=== PATIENT | male | born 1950 | race Caucasian/White ===

== ENCOUNTER → 2018-02-14 09:21 | Outpatient (CLI) | payer SELFPAY ==
[2018-02-14 11:14] LABS: PSA,Total- Diagnostic 5.87 ng/mL (0.0-4.0)
--- OUTSIDE RECORDS SUMMARY | 2018-04-09 13:25 | XMS RPT_ITS ---
:1950 Author Organization OHIP Care Team Providers Name Role Phone Sailaja Lion Attending Unavailable Sailaja Lion Referring Unavailable Jl Watson Primary Care Unavailable PROBLEMS PROBLEMS No Problem Records FoundPROCEDURES PROCEDURES No Procedure Records FoundRESULTS RESULTS PSA,TOTAL- DIAGNOSTIC Collected: 02/14/2018 Status: F Source: [place] 9:30 AM [facility] [place] REPOSITORY TYPE CODE TESTS RESULT OUT OF REFERENCE UNITS RANGE LAB L501.9940 0.0-4.0 ng/mL PSA, High DIAGNOSTIC 5.87 Result Comment: This test was performed using the TPSA assay method for the Scholrly chemistry system. Values obtained with different assay methods cannot be used interchangably. When changing PSA assays in the course of monitoring a patient, additional sequential testing should be carried out to confirm baseline values. Performed By: #### L501.9940 #### [facility] [address] [place], [address] ALLERGIES ALLERGIES No Allergies Records FoundENCOUNTERS ENCOUNTERS ADMIT/DISCHARGE ACCOUNT ADMITTING ENCOUNTER LOCATION SOURCE NUMBER CLASS 02/14/2018 [id number] Ambulatory [address] ing:LAB Repository PAYERS PAYERS ENCOUNTER GUARANTOR PAYER SUBSCRIBER SOURCE 02/14/2018 SAUD Bolivar Primary NOT GIVENUNK [place] [id number] [facility] Insurance:[facility]LF [facility] Number: Effective [place] [address]Lnm: Date:2018-02-14 ()
== END ==
PROVIDERS: Family Provider Family Medicine; PCP Family Medicine; Referring Provider Nurse Practitioner Adult Health; Visit Provider Nurse Practitioner Adult Health
DX: R97.20 Elevated prostate specific antigen [PSA] (principal)
CPT/HCPCS: 36415; 84153

== ENCOUNTER → 2019-03-02 09:02 | Outpatient (CLI) | payer SELFPAY ==
[2019-03-02 11:27] LABS: PSA,Total - Annual Screen 6.88 ng/mL (0.00-4.00)
== END ==
PROVIDERS: Family Provider Family Medicine; PCP Family Medicine; Referring Provider Nurse Practitioner Adult Health; Visit Provider Nurse Practitioner Adult Health
DX: N40.1 Benign prostatic hyperplasia with lower urinary tract symptoms (principal)
CPT/HCPCS: 36415; 84153; G0103

== ENCOUNTER → 2019-08-28 09:08 | Outpatient (CLI) | payer OTHER, SELFPAY ==
[2019-08-28 10:33] LABS: PSA,Total- Diagnostic 9.43 ng/mL (0.0-4.0)
== END ==
PROVIDERS: PCP Family Medicine; Referring Provider Nurse Practitioner Adult Health; Visit Provider Nurse Practitioner Adult Health
DX: R97.20 Elevated prostate specific antigen [PSA] (principal)
CPT/HCPCS: 36415; 84153

== ENCOUNTER → 2019-10-17 | Outpatient (CLI) | payer OTHER, SELFPAY ==
--- NOTE | 2019-10-17 | IMM_PTH ---
PATIENT: SAUD RIVAS LOC: [place] U#:[id number] AGE/SX: 69/M ROOM: RE10/17/[address]: Dr. Jerel Lopez MD : 1950 BED: DIS: 10/17/2019 SPEC #: [id number] RECD: 10/18/19 12:50 STATUS: LIDIA REQ #: [id number] JOSUE: 10/17/19 00:[address]: Jerel Lopez DEPT: IMMUNOHISTOCHEMISTRY RECD BY: Praveena Duran ENTERED: 10/18/19 12:51 SP TYPE: IMMUNO OTHR DR: Dr. Jl Watson DO Tissues: A - PROSTATE RIGHT D - PROSTATE LEFT Procedures: 34BE12 (add) P40 (add) 34BE12 (initial) PHYSICIAN & INSTITUTION [place] [id number] SPECIMEN INFORMATION: Tissue Source: Clinical Info: Elevated PSA Specimen Number: [id number] A & D CPT code: 34241, 50171 x3 METHODOLOGY: Deparaffinized sections of prefer/formalin-fixed tissue or PAP/DQ stained slides are incubated with monoclonal/polyclonal antibodies/oligonucleotide probes. Localization is made via biotin free immunoperoxidase method. Appropriate controls are performed and reacted as expected. Results on target cell population are indicated in the following table: RESULTS: ANTIBODY / CLONE RESULT Block A P40 (BC28) negative, focal 34BE12 (34BE12) negative, focal Block D P40 (BC28) positive 34BE12 (34BE12) positive These tests were developed and their performance characteristics determined by [facility]. They may not have been cleared or approved by the U.S. Food and Drug Administration. The FDA has determined that such clearance or approval is not necessary. The above immunohistochemical/dualISH markers are ordered and reviewed by the Pathologist. INTERPRETATION: A. Right prostate, apex, core biopsy: Focal atypical small acinar proliferation. D. Left prostate, apex, core biopsy: Benign prostatic tissue. AM:jorge 10/19/19
--- NOTE | 2019-10-17 | PROSBIL_PTH ---
PATIENT: SAUD RIVAS [facility] U#:[id number] AGE/SX: 69/M ROOM: RE10/17/[address]: Dr. Jerel Lopez MD : 1950 BED: DIS: 10/17/2019 SPEC #: [id number] RECD: 10/17/19 11:47 STATUS: LIDIA REZamzam #: [id number] JOSUE: 10/17/19 00:[address]: Jerel Lopez DEPT: SURGICAL PATHOLOGY RECD BY: Yo Pollard ENTERED: 10/17/19 11:47 SP TYPE: PROST BX ARANZA DR: Dr. Jl Watson DO Tissues: A - PROSTATE RIGHT B - PROSTATE RIGHT C - PROSTATE RIGHT D - PROSTATE LEFT E - PROSTATE LEFT F - PROSTATE LEFT Procedures: PROSTATE BX HEADER OPERATION: Prostate biopsy PRE-OP DIAGNOSIS: Elevated PSA TISSUE SUBMITTED: A - Right apex, B - Right mid, C - Right base, D - Left apex, E - Left mid, F - Left base MICROSCOPIC DIAGNOSIS A. Right prostate, apex, core biopsy: Focal high-grade prostatic intraepithelial neoplasia (HGPIN). Focal atypical small acinar proliferation. See comment. B. Right prostate, mid, core biopsy: Focal glandular atrophy. C. Right prostate, base, core biopsy: Focal high-grade prostatic intraepithelial neoplasia (HGPIN). D. Left prostate, apex, core biopsy: Glandular atrophy. Focal high-grade prostatic intraepithelial neoplasia (HGPIN). E. Left prostate, mid, core biopsy: Focal glandular atrophy. Mild chronic inflammation. F. Left prostate, base, core biopsy: Glandular atrophy and minimal chronic inflammation. AM:jorge 10/18/19 COMMENT A & D. Immunohistochemistry ([id number]) supports the above diagnosis. MICROSCOPIC DESCRIPTION Slides are reviewed. GROSS DESCRIPTION A - Received is one container designated prostate, right apex. The specimen consists of two elongated fragments of light myers-white soft tissue measuring 0.7 and 1.3 cm in length and 0.1 cm in diameter. The specimen is totally submitted in one cassette. B - Received is one container designated prostate, right mid. The specimen consists of two elongated fragments of light myers-white soft tissue measuring 1.3 and 1.5 cm in length and 0.1 cm in diameter. The specimen is totally submitted in one cassette. C - Received is one container designated prostate, right base. The specimen consists of two elongated fragments of light myers-white soft tissue each measuring 1.3 cm in length and 0.1 cm in diameter. The specimen is totally submitted in one cassette. D - Received is one container designated prostate, left apex. The specimen consists of two elongated fragments of light myers-white soft tissue each measuring 1.2 cm in length and 0.1 cm in diameter. The specimen is totally submitted in one cassette. E - Received is one container designated prostate, left mid. The specimen consists of two elongated fragments of light myers-white soft tissue measuring 1.3 and 1.5 cm in length and 0.1 cm in diameter. The specimen is totally submitted in one cassette. F - Received is one container designated prostate, left base. The specimen consists of two elongated fragments of light myers-white soft tissue measuring 1 and 1.5 cm in length and 0.1 cm in diameter. The specimen is totally submitted in one cassette. / SJ:rg 10/17/19 TC:3 CPT: 54940 x6
== END | disposition home or self-care (01) ==
LOC: LABSPEC 10:50
PROVIDERS: PCP Family Medicine; Referring Provider Urology; Visit Provider Urology
DX: R97.20 Elevated prostate specific antigen [PSA] (principal)
CPT/HCPCS: 88305; 88341; 88342; G0416

== ENCOUNTER → 2020-04-25 09:25 | Outpatient (CLI) | payer OTHER, SELFPAY ==
[2020-04-25 11:08] LABS: PSA,Total- Diagnostic 5.88 ng/mL (0.0-4.0)
== END ==
PROVIDERS: PCP Family Medicine; Referring Provider Urology; Visit Provider Urology
DX: N40.1 Benign prostatic hyperplasia with lower urinary tract symptoms (principal)
CPT/HCPCS: 36415; 84153

== ENCOUNTER 2021-03-17 11:32 | Outpatient (CLI) | payer OTHER, SELFPAY ==
[2021-03-17 13:20] LABS: Vitamin D,25 Hydroxy 68.1 ng/mL
[2021-03-17 14:41] LABS: Estradiol 42.2 pg/mL; PSA,Total- Diagnostic 3.89 ng/mL (0.0-4.0)
[2021-03-20 11:08] LABS: Testosterone, Free 10.38 ng/dL (5.00-21.00)
[2021-03-21 13:56] LABS: Testosterone, % Free 2.57 % (1.50-4.20); Testosterone, Total 404 ng/dL (264-916)
== END 2021-03-17 23:59 | disposition short-term general hospital (02) ==
PROVIDERS: PCP Family Medicine; Visit Provider Legal Medicine
DX: E34.9 Endocrine disorder, unspecified (principal); E55.9 Vitamin D deficiency, unspecified; N40.0 Benign prostatic hyperplasia without lower urinary tract symptoms
CPT/HCPCS: 36415; 82306; 82670; 84153; 84402; 84403

== ENCOUNTER → 2021-11-24 | Outpatient (CLI) | payer OTHER, SELFPAY ==
[2021-11-24 09:57] LABS: Hematocrit 45.1 % (40-54); Hemoglobin 15.6 g/dL (13.0-16.5); Mean Corp Hgb Conc 34.6 g/dL (32-36); Mean Corpuscular Hgb 33.1 pg (27.0-32.0); Mean Corpuscular Volume 95.8 fL (80-94); Mean Platelet Vol. 9.9 fl (6.2-12.0); Platelet Count 149 K/mm3 (150-450); RBC Distribution Width CV 12.9 % (11.6-14.6); RBC Distribution Width SD 45.5 fl (35.1-43.9); Red Blood Count 4.71 M/mm3 (4.6-6.2); White Blood Count 4.7 K/mm3 (4.4-11.0)
[2021-11-24 10:30] LABS: Vitamin D,25 Hydroxy 47.8 ng/mL
[2021-11-24 10:40] LABS: ALB/GLOB Ratio 0.9 RATIO (0.9-2.4); AST(SGOT) 14 U/L (15-37); Alanine Aminotransfer ALT/SGPT 32 U/L (16-61); Albumin, Serum 3.4 g/dL (3.2-5.0); Alkaline Phosphatase 79 U/L (45-117); Anion Gap 4 (5-15); BUN 15 mg/dL (7-18); BUN/Creat Ratio 12.9 RATIO (10-20); Calcium,Total 9.1 mg/dL (8.5-10.1); Chloride 105 mmol/L (98-107); Cholesterol 235 mg/dL (200); Creatinine, Serum 1.16 mg/dL (0.70-1.30); EST Glomerular Filtration Rate 66 mL/min (>60); Est Glom Filt Rate - Afr Amer 80 mL/min (>60); Globulin 3.6 g/dL (2.2-4.2); Glucose 101 mg/dL (74-106); High Density Lipoprotein 53 mg/dL; LDH 186 U/L (87-241); PSA,Total - Annual Screen 2.57 ng/mL (0.00-4.00); Potassium 4.3 mmol/L (3.5-5.1); Sodium Level 138 mmol/L (136-145); Thyroid Stim Hormone (TSH) 1.43 uIU/mL (0.358-3.74); Triglycerides 140 mg/dL; Very Low Density Lipoprotein 28 mg/dL (5-40)
[2021-12-06 13:07] LABS: Testosterone, Free 41.23 ng/dL (5.00-21.00)
[2021-12-08 08:35] LABS: Testosterone, % Free 4.07 % (1.50-4.20); Testosterone, Total 1013 ng/dL (264-916)
== END | disposition home or self-care (01) ==
LOC: LAB 08:50
DX: N40.0 Benign prostatic hyperplasia without lower urinary tract symptoms (principal); E55.9 Vitamin D deficiency, unspecified; E34.9 Endocrine disorder, unspecified
CPT/HCPCS: 36415; 80053; 80061; 82306; 83615; 84153; 84402; 84403; 84443; 85027; G0103

== ENCOUNTER → 2022-04-01 | Outpatient (CLI) | payer OTHER, SELFPAY ==
[2022-04-01 11:00] LABS: Hematocrit 47.9 % (40-54); Hemoglobin 16.4 g/dL (13.0-16.5); Mean Corp Hgb Conc 34.2 g/dL (32-36); Mean Corpuscular Hgb 32.1 pg (27.0-32.0); Mean Corpuscular Volume 93.7 fL (80-94); Mean Platelet Vol. 9.7 fl (6.2-12.0); Platelet Count 157 K/mm3 (150-450); RBC Distribution Width CV 12.4 % (11.6-14.6); RBC Distribution Width SD 42.9 fl (35.1-43.9); Red Blood Count 5.11 M/mm3 (4.6-6.2); White Blood Count 4.5 K/mm3 (4.4-11.0)
[2022-04-01 11:26] LABS: ALB/GLOB Ratio 0.9 RATIO (0.9-2.4); AST(SGOT) 19 U/L (15-37); Alanine Aminotransfer ALT/SGPT 28 U/L (16-61); Albumin, Serum 3.6 g/dL (3.2-5.0); Alkaline Phosphatase 83 U/L (45-117); Anion Gap 7 (5-15); BUN 22 mg/dL (7-18); BUN/Creat Ratio 18.2 RATIO (10-20); Chloride 106 mmol/L (98-107); Cholesterol 218 mg/dL (200); Creatinine, Serum 1.21 mg/dL (0.70-1.30); EST Glomerular Filtration Rate 63 mL/min (>60); Est Glom Filt Rate - Afr Amer 76 mL/min (>60); Estradiol 51.7 pg/mL; Globulin 3.8 g/dL (2.2-4.2); Glucose 102 mg/dL (74-106); High Density Lipoprotein 62 mg/dL; Potassium 4.2 mmol/L (3.5-5.1); Protein, Total 7.4 g/dL (6.4-8.2); Sodium Level 139 mmol/L (136-145); Triglycerides 71 mg/dL; Very Low Density Lipoprotein 14 mg/dL (5-40)
[2022-04-06 16:08] LABS: Testosterone, % Free 1.88 % (1.50-4.20); Testosterone, Free 11.99 ng/dL (5.00-21.00)
[2022-04-06 18:33] LABS: PSA, Free 0.67 ng/mL; PSA, Free % 19.9 % (.); Testosterone, Total 638 ng/dL (264-916)
== END | disposition home or self-care (01) ==
PROVIDERS: PCP Legal Medicine; Referring Provider Legal Medicine; Visit Provider Legal Medicine
DX: E55.9 Vitamin D deficiency, unspecified (principal); N40.0 Benign prostatic hyperplasia without lower urinary tract symptoms; E29.1 Testicular hypofunction; R97.20 Elevated prostate specific antigen [PSA]
CPT/HCPCS: 36415; 80053; 80061; 82670; 84153; 84154; 84402; 84403; 85027

== ENCOUNTER → 2022-06-10 | Outpatient (CLI) | payer SELFPAY, OTHER ==
--- NOTE | 2022-06-10 15:53 | MRI_ITS ---
EXAM: MR HEAD WITHOUT AND WITH INTRAVENOUS CONTRAST CLINICAL INDICATION: NEW ONSET SEIZURE TECHNIQUE: Multiplanar and multisequence MR images of the brain were obtained without and with intravenous contrast. This report was created using LogR[employer] report generation technology. CONTRAST: clariscan 17ml iv COMPARISON: None. FINDINGS: BRAIN AND EXTRA-AXIAL SPACES: Increased FLAIR regions in the brain may signify early microvascular ischemic changes, a demyelinating process, vasculitis, or sequela related to migraines. No intra- or extra-axial hemorrhage. No intracranial mass or mass effect. Posterior fossa structures are unremarkable. Ventricles are appropriate for age. No hydrocephalus. Basal cisterns are patent. SELLA: Unremarkable. Normal sella turcica, pituitary gland, infundibular stalk, optic chiasm and hypothalamus. AUDITORY SYSTEM: Unremarkable. The internal auditory canals are patent. BONES/JOINTS: Unremarkable. No discrete lytic or blastic abnormalities. SINUSES: Pansinusitis. Left mastoid air cell disease. MASTOID AIR CELLS: Unremarkable as visualized. Clear. ORBITS: Unremarkable as visualized. Both globes, extraocular muscles, optic nerves and retrobulbar fat appear unremarkable. VASCULATURE: Unremarkable as visualized. Normal flow voids in the major intracranial circulation. MRI/Brain W/WO Contrast IMPRESSION: 1. Pansinusitis. Left mastoid air cell disease. 2. Microvascular ischemic changes. Electronically Signed: Destin Gutierrez MD at 18:04 EDT ,
[2022-06-10 16:35] LABS: CREATININE FINGERSTICK 1.1 mg/dL (0.70-1.30); EGFR FINGERSTICK > 60.0000 mL/min (>60)
== END | disposition home or self-care (01) ==
PROVIDERS: PCP Legal Medicine; Referring Provider Legal Medicine; Visit Provider Legal Medicine
DX: R56.9 Unspecified convulsions (principal)
CPT/HCPCS: 70553; A9575

== ENCOUNTER → 2022-07-07 | Outpatient (CLI) | payer OTHER, SELFPAY ==
--- NOTE | 2022-07-07 10:08 | TELEMED_ITS ---
[facility] Tele[facility] has confirmed receipt of a request for visit. This document confirms receipt of the order initiating the consult. To find the results of the consultation, please view the patient's reports for the scanned Telemed Consult.
[2022-07-07 11:40] LABS: Hematocrit 49.1 % (40-54); Hemoglobin 16.5 g/dL (13.0-16.5); Mean Corp Hgb Conc 33.6 g/dL (32-36); Mean Corpuscular Hgb 32.9 pg (27.0-32.0); Mean Platelet Vol. 9.8 fl (6.2-12.0); Platelet Count 149 K/mm3 (150-450); RBC Distribution Width CV 12.5 % (11.6-14.6); RBC Distribution Width SD 44.9 fl (35.1-43.9); Red Blood Count 5.01 M/mm3 (4.6-6.2); White Blood Count 4.4 K/mm3 (4.4-11.0)
[2022-07-07 12:06] LABS: Erythrocyte Sedimentation Rate 6 mm/hr (0-20)
[2022-07-07 12:26] LABS: Vitamin B12 591 pg/mL (211-911); Vitamin D,25 Hydroxy 46.1 ng/mL
[2022-07-07 15:10] LABS: ALB/GLOB Ratio 1.1 RATIO (0.9-2.4); AST(SGOT) 20 U/L (15-37); Alanine Aminotransfer ALT/SGPT 30 U/L (16-61); Albumin, Serum 3.7 g/dL (3.2-5.0); Alkaline Phosphatase 93 U/L (45-117); Anion Gap 4 (5-15); BUN 21 mg/dL (7-18); BUN/Creat Ratio 18.4 RATIO (10-20); CRP < 2.90 mg/L (0.0-3.0); Calcium,Total 8.9 mg/dL (8.5-10.1); Chloride 107 mmol/L (98-107); Cholesterol 222 mg/dL (200); Creatinine, Serum 1.14 mg/dL (0.70-1.30); EST Glomerular Filtration Rate 67 mL/min (>60); Est Glom Filt Rate - Afr Amer 81 mL/min (>60); Estradiol 42.3 pg/mL; Globulin 3.5 g/dL (2.2-4.2); Glucose 103 mg/dL (74-106); High Density Lipoprotein 59 mg/dL; Potassium 4.4 mmol/L (3.5-5.1); Protein, Total 7.2 g/dL (6.4-8.2); Sodium Level 138 mmol/L (136-145); Triglycerides 78 mg/dL; Very Low Density Lipoprotein 16 mg/dL (5-40)
[2022-07-14 11:09] LABS: Testosterone, % Free 1.21 % (1.50-4.20); Testosterone, Free 9.66 ng/dL (5.00-21.00); Testosterone, Total 798 ng/dL (264-916)
== END | disposition home or self-care (01) ==
PROVIDERS: PCP Legal Medicine; Referring Provider Legal Medicine; Visit Provider Legal Medicine
DX: G40.909 Epilepsy, unspecified, not intractable, without status epilepticus (principal); E29.1 Testicular hypofunction
CPT/HCPCS: 36415; 80053; 80061; 82306; 82607; 82670; 84402; 84403; 85027; 85652; 86140; 95819

== ENCOUNTER 2022-10-17 05:27 | Emergency (ER) | payer OTHER, SELFPAY ==
[2022-10-17 05:28] VITALS: BP 153/96; PULSE 72; RESP 16; TEMP 36.4; O2SAT 98; BMI 30.7
--- NOTE | 2022-10-17 06:02 | CT_ITS ---
INDICATION: head injury EXAMINATION: CT BRAIN - CT Head or Brain W/O Contrast Injection TECHNIQUE: Multiple axial images were obtained of the head without intravenous contrast. A radiation dose optimization technique was used for this scan. IV Contrast dosage and agent: None. COMPARISON: MRI brain June 10, 2022 FINDINGS: BRAIN PARENCHYMA: No intra- or extra-axial hemorrhage. No evidence of acute infarct. No intracranial mass or mass effect. Unremarkable white matter for age. There is preservation of the fortune/white matter interface. Posterior fossa structures are unremarkable. CSF SPACES: Cerebral volume appropriate for age. No hydrocephalus. Basal cisterns are patent. CALVARIUM, SKULL BASE, PARANASAL SINUSES AND MASTOID AIR CELLS: Small left parietal occipital scalp hematoma. No acute osseous finding. Diffuse acute sinus disease, most prominent throughout the right maxillary, left frontal, and bilateral ethmoid sinuses. Partial opacification of the inferior left mastoid air cells.. ORBITS: Both globes, extraocular muscles, optic nerves and retrobulbar fat appear unremarkable. ASPECTS Score for Acute Strokes: 10 CT/Brain/Head without Contrast IMPRESSION: No CT evidence of acute intracranial hemorrhage or injury. Left parietal occipital superficial scalp hematoma without evidence of underlying calvarial fracture. Nonspecific left inferior mastoid air cell fluid without visible fracture, similar to MRI June 10, 2022. Correlate for clinical mastoiditis. If there is clinical concern for temporal bone fracture CT temporal bone within slices could further evaluate. Acute sinus disease. Electronically Signed: Jeffry Pineda MD at 7:01 EDT ,
--- NOTE | 2022-10-17 06:02 | CT_ITS ---
INDICATION: pain EXAMINATION: CT CERVICAL SPINE - CT Spine Cervical W/O Contrast Injection TECHNIQUE: Helically acquired images were obtained of the cervical spine. 2D reformatted images were reviewed. A radiation dose optimization technique was used for this scan. IV Contrast dosage and agent: None. COMPARISON: CT head October 17, 2022.] MRI November 10, 2022. FINDINGS: VERTEBRAE: No fracture or acute compression deformity. No discrete lytic or blastic abnormality. Preserved cervical lordosis with degenerative grade 1 anterolisthesis C7 on T1. Normal craniocervical junction and cervicothoracic junction. Partial opacification left inferior mastoid air cells without fracture the study [id number]. DISCS and SPINAL CANAL: Diffuse disc height loss with small posterior disc osteophyte complexes most prominent C5-C6 with mild spinal canal narrowing and multilevel mild neural foraminal stenosis. NECK SOFT TISSUES: No prevertebral soft tissue swelling. There is no cervical adenopathy. LUNG APICES: Clear. CT/Spine Cervical without Contras IMPRESSION: No evidence of acute cervical spinal fracture. Spondylosis as above. Left mastoid air cell partial opacification without fracture in the study [id number], similar to prior MRI June 10, 2022. Correlate for localized tenderness. CT temporal bone could further evaluate for injury as clinically indicated. Electronically Signed: Jeffry Pineda MD at 7:27 EDT ,
--- NOTE | 2022-10-17 06:07 | EX.ED.DYSGE1 ---
HPI History of Present Illness Chief Complaint: Fall Informant: patient and EMS Narrative Narrative: Patient is a 70-year-old male with past medical history of BPH and macular degeneration. He states he returned home this evening from vacation and was walking to the washroom. He states he has difficulty seeing because of his macular degeneration and he actually went through the doorway that led to the basement and not the washroom which led him to fall. He states that he struck his back on the stairs and he also struck his head. He denies any loss of consciousness history of bleeding disorder or blood thinner use. He states that he was on the ground for approximately an hour and a half. He states he could not get up secondary to pain in his low back. He denies any numbness tingling or weakness or loss of bowel or bladder control. However with the trauma and persistent pain and difficulty ambulating he was brought in for evaluation [facility] Home Medications finasteride 5 mg tablet mg 10/17/22 [History Last Taken Unknown] latanoprost 0.005 % eye drops drp 10/17/22 [History Last Taken Unknown] methocarbamol 500 mg tablet 500 mg PO 4X/DAY PRN PRN Muscle pain/spasm #40 tabs 10/17/22 [Rx Last Taken Unknown] oxycodone-acetaminophen 5 mg-325 mg tablet (Percocet) 1 tab PO Q6H PRN pain 3 days #12 tabs 10/17/22 [Rx Last Taken Unknown] Allergy/AdvReac Type Severity Reaction Status Date / Time No Known Allergies Allergy Verified 10/17/22 05:33 Social History Smoking Status: Never smoker [facility] ED Constitutional Constitutional ED: Denies chills or fever(s) Eyes Eyes: Denies blurry vision or change in vision ENT ENT ED: Denies sore throat Cardiovascular Cardiovascular: Denies chest pain Respiratory/Chest Respiratory/Chest: Denies cough or dyspnea Gastrointestinal Gastrointestinal: Denies abdominal pain, diarrhea, nausea or vomiting Genitourinary Genitourinary ED: Denies dysuria Musculoskeletal Musculoskeletal: Reports back pain; Denies neck pain Integumentary Reports Abrasions Neurologic Neurologic: Denies headache(s) Hematologic/Lymphatic Hematologic/Lymphatic: Denies easy bleeding or easy bruising EXAM Physical Exam Const Vital Signs: 10/17/22 05:28 10/17/22 06:03 Temperature 97.5 F L Temperature Source Temporal Pulse Rate 72 Respiratory Rate 16 Respiratory Effort Normal Non-Labored Respiratory Depth Normal Respiratory Pattern Normal Blood Pressure 153/96 H Blood Pressure Mean 115 Pulse Ox 98 Oxygen Delivery Method Room Air Room Air Positive well nourished and well developed General Appearance ED: well developed HEENT HEENT Narrative: No signs of depressed or basilar skull fracture Patient does have a 5 x 4 cm hematoma to the left middle to upper occipital region of the scalp with a 4 cm subcutaneous layer deep laceration across the upper portion of the occiput. There is dried blood present at the site but no active bleeding. No retained foreign body. No septal hematoma Eyes PERRL and EOMs intact bilaterally Eyes Narrative: No hyphema Neck supple Neck Narrative: No bony deformity or step-off of the cervical spine no midline pain with palpation Chest Wall palpation of chest normal Chest Narrative: No bony deformity or crepitus noted Resp normal respiratory effort and clear to auscultation bilaterally Cardio regular rate and regular rhythm Rate: other Other Details: Radial pulses are plus 2 out of 4 bilaterally are equal and symmetric GI normal to inspection, nondistended, normoactive bowel sounds, non-tender and non-distended GI Narrative: No voluntary guarding or rigidity no pulsatile Auscultation: normoactive bowel sounds Palpation: soft Back/Spine Back/Spine Narrative: No bony deformity or step-off of the thoracic or lumbar spine. Patient has superficial linear abrasion over top the lower lumbar spine consistent with report of fall. There is pain on palpation over top the lower lumbar region as well as into the sacrum. No saddle anesthesia. Negative straight leg raise. No clonus or Babinski. Patellar reflexes are plus 1 out of 4 bilaterally Extremity normal to inspection Extremity Narrative: Pelvis is stable there is no shortening or external rotation of either lower extremity. Patient can lift both arms and legs without difficulty. Neuro oriented x3, CN's II-XII intact bilaterally and no sensory deficits noted Sensorium / Orientation: alert Sensory Exam: sensory level loss detected Motor Exam: strength 5/5 throughout Psych mental status grossly normal Skin no rashes or lesions noted MDM MDM MDM Narrative Medical decision making narrative: Patient presented to the ER awake and alert and reported a mechanical fall and therefore there is no need for cardiac or syncope work-up. He reports pain in his low back making it difficult to ambulate but he has no loss of bowel or bladder control and no signs of neurologic dysfunction. Therefore at this time a head and cervical spine CT was obtained secondary to the trauma to rule out skull fracture or brain bleed or cervical spine injury. These images revealed no underlying traumatic skull fracture or epidural hematoma or subarachnoid. X-rays of the lumbar spine as well as sacrum and coccyx were also obtained and revealed no acute compression fracture or spondylolisthesis. Patient was given Percocet and did have improvement of his pain. His scalp laceration was closed with catalina as documented below. After imaging studies were reviewed and are negative patient was road tested and can ambulate with a steady gait. Therefore he was given pain medication for home and is otherwise safe for discharge as work-up reveals no signs of underlying trauma Patient had his scalp laceration cleaned with hydrogen peroxide. The wound was then anesthetized using 6 mL of 1% lidocaine with epinephrine in local fashion. The wound was copiously irrigated with normal saline. Then 13 catalina were placed into the wound bring the edges together well with close approximation. Patient tolerated procedure well without complication History & Record Review Discussion w/independent historian: EMS personnel, Patient and Family Radiography Diagnostic Testing: Clinical Impression(s) from Imaging Studies Brain CT 10/17/22 06:02 IMPRESSION: No CT evidence of acute intracranial hemorrhage or injury. Left parietal occipital superficial scalp hematoma without evidence of underlying calvarial fracture. Nonspecific left inferior mastoid air cell fluid without visible fracture, similar to MRI June 10, 2022. Correlate for clinical mastoiditis. If there is clinical concern for temporal bone fracture CT temporal bone within slices could further evaluate. Acute sinus disease. Electronically Signed: Jeffry Pineda MD at 7:01 EDT , Cervical Spine CT 10/17/22 06:02 IMPRESSION: No evidence of acute cervical spinal fracture. Spondylosis as above. Left mastoid air cell partial opacification without fracture in the study [id number], similar to prior MRI June 10, 2022. Correlate for localized tenderness. CT temporal bone could further evaluate for injury as clinically indicated. Electronically Signed: Jeffry Pineda MD at 7:27 EDT , Lumbar Spine X-Ray 10/17/22 06:16 IMPRESSION: No evidence of lumbar spinal fracture or spondylolisthesis. Mid to lower lumbar predominant spondylosis. Electronically Signed: Jeffry Pineda MD at 7:29 EDT Reading Location ID and State: [facility] / [place] Tel , Service support , Sacrum and Coccyx X-Ray 10/17/22 06:21 IMPRESSION: No evidence of acute injury. If there is high clinical concern for injury CT could further evaluate. Electronically Signed: Jeffry Pineda MD at 7:35 EDT Reading Location ID and State: [facility] / [place] Tel , Service support , Pelvis X-Ray 10/17/22 06:31 IMPRESSION: No evidence of displaced pelvic or hip fracture. Electronically Signed: Jeffry Pineda MD at 7:31 EDT Reading Location ID and State: [facility] / [place] Tel , Service support , X-ray of the pelvis as interpreted by the emergency medicine physician reveals no acute fracture or dislocation X-ray of the lumbar spine as well as the sacrum and coccyx as interpreted by the emergency medicine physician reveals mild scoliosis of the lumbar spine without acute compression fracture or spondylolisthesis. Discharge Plan Triage Chief Complaint: Fall ED Provider: Jaime Tanner Dx/Rx/DC Orders Clinical Impression: Lumbar contusion, Laceration of occipital scalp, Accidental fall Instructions: ED Back Contusion, ED Head Injury (Adult), ED Laceration: All Closures Prescriptions: New methocarbamol 500 mg tablet 500 mg PO 4X/DAY PRN PRN (Reason: Muscle pain/spasm) Qty: 40 0RF oxycodone-acetaminophen [Percocet] 5-325 mg tablet 1 tab PO Q6H PRN (Reason: pain) 3 Days Qty: 12 0RF No Action latanoprost 0.005 % drops Patient Comments: INSTILL 1 DROP INTO EACH EYE ONCE DAILY finasteride 5 mg tablet Patient Comments: TAKE 1 TABLET BY MOUTH ONCE DAILY Primary Care Provider: Faisal Barboza Referrals: Faisal Barboza MD [Primary Care Provider] - Activity Restrictions/Additional Instructions: Please follow-up with your family doctor or return to the ER in 10 to 14 days for staple removal Disposition Disposition: Home, Self Care
[2022-10-17] MEDS: Oxycodone/Apap 5/325 Tablet PO (06:11)
--- NOTE | 2022-10-17 06:16 | RAD_ITS ---
INDICATION: pain EXAMINATION/TECHNIQUE: X-RAY - XR Spine Lumbar 2 or 3 Views: AP and crosstable lateral lumbar spine COMPARISON: None. FINDINGS: VERTEBRAE: Preserved vertebral body height. No fracture. No spondylolisthesis. Preservation of the normal lumbar lordosis. Dextrocurvature of the mid lumbar spine. Lower lumbar endplate osteophyte formation . Facet arthropathy of L4-5 and left L5-S1.. DISCS: Lower lumbar multilevel disc height loss most prominent at L4-5. INCLUDED ABDOMEN: Included bowel gas pattern is non-obstructive. Mild aortic atherosclerosis. RAD/Lumbar Spine 2 or 3 Views IMPRESSION: No evidence of lumbar spinal fracture or spondylolisthesis. Mid to lower lumbar predominant spondylosis. Electronically Signed: Jeffry Pineda MD at 7:29 EDT ,
--- NOTE | 2022-10-17 06:21 | RAD_ITS ---
INDICATION: pain EXAMINATION/TECHNIQUE: X-RAY - XR Sacrum/Coccyx Min 2 Views COMPARISON: Pelvis and lumbar spine radiograph on same day. FINDINGS: SACRUM/COCCYX: No displaced fracture, destructive or sclerotic lesions. Sacral arcuate lines are intact. Note that overlapping bowel shadows may however obscure fine detail in the frontal view. Lower lumbar spondylosis better evaluated on lumbar spine radiograph. SACRO-ILIAC JOINTS: Normal alignment. No erosive changes or significant sclerosis. SOFT TISSUES: No soft tissue swelling or gas. Scattered small pelvic phleboliths. RAD/Sacrum-Coccyx min 2 Views IMPRESSION: No evidence of acute injury. If there is high clinical concern for injury CT could further evaluate. Electronically Signed: Jeffry Pineda MD at 7:35 EDT ,
--- NOTE | 2022-10-17 06:31 | RAD_ITS ---
INDICATION: pain EXAMINATION/TECHNIQUE: X-RAY - XR Pelvis 1 or 2 Views COMPARISON: Lumbar spine radiograph on same day. FINDINGS: PELVIC BONES: No displaced fracture, destructive or sclerotic lesions. Note that overlapping bowel shadows may however obscure fine detail. Sacroiliac joints are unremarkable. No widening of the pubic symphysis. HIPS: Normal bilateral hip alignment with preserved joint spacing and minimal superior acetabular osteophyte formation.. SOFT TISSUES: No soft tissue swelling or gas. RAD/Pelvis 1 or 2 Views IMPRESSION: No evidence of displaced pelvic or hip fracture. Electronically Signed: Jeffry Pineda MD at 7:31 EDT ,
[2022-10-17 07:27] VITALS: RESP 16
== END 2022-10-17 08:03 | disposition home or self-care (01) ==
PROVIDERS: Emergency Provider Emergency Medicine; PCP Legal Medicine; Visit Provider Emergency Medicine
DX: S01.01XA Laceration without foreign body of scalp, initial encounter (principal); S30.0XXA Contusion of lower back and pelvis, initial encounter; H35.30 Unspecified macular degeneration; N40.0 Benign prostatic hyperplasia without lower urinary tract symptoms
CPT/HCPCS: 12002; 70450; 72100; 72125; 72170; 72220; 99284

== ENCOUNTER → 2023-03-18 | Outpatient (CLI) | payer OTHER, SELFPAY ==
--- OUTSIDE RECORDS SUMMARY | 2023-03-18 08:57 | XMS RPT_ITS | CCD ---
Author Name Unknown Address [address] [place] [address] Organization [facility] Care Team Providers Care Sexual Assault Counselor Name Role Phone PortiaPardeep Unavailable Unavailable PROVIDER, UNKNOWN Unavailable Unavailable Emely Rodríguez Unavailable Unavailable EMELY RODRÍGUEZ Unavailable Unavailable EMELY RODRÍGUEZ Unavailable Unavailable EMELY RODRÍGUEZ Unavailable Unavailable Problems Active Problems Problem Classification Problem Date Documented Da te Episodic/Chronic Unclassified (1 source) Unknown / UNK(Unknown) Onset: 09-14-2016 Past or Other Problems Problem Classification Problem Date Documented Da te Episodic/Chronic Nonspecific chest pain (2 sources) Other chest pain; Translations: [Other chest pain] Onset: 02-01-2017 Episodic Unclassified (1 source) R97.20 Onset: 09-14-2016 Results Test Name Value Interpretation Reference Range Facil ity Encounters Encounter Date Encounter Type Care Provider Facility Start: 02-01-2017 Ambulatory Pardeep Pearce [facility] Start: 09-14-2016 End: 09-15-2016 Ambulatory EMELY RODRÍGUEZ Facility:[facility] Payers Date Payer Category Payer Policy ID Self-pay Summary Purpose Family History No Family History Records FoundNo Family History Records FoundNo Family History Records Found Advance Directives No Advanced Directives Records FoundNo Advanced Directives Records FoundNo Advanced Directives Records Found Additional Source Comments (unrecognized sect ion and content) No Status Records FoundNo Status Records FoundNo Status Records Found INFORMATION SOURCE (unrecogn ized section and content) DATE CREATED AUTHOR AUTHOR'S ORGANIZ ATION 09/08/2017 [facility] DATE CREATED AUTHOR AUTHOR'S ORGANIZ ATION 05/18/2020 [facility] FOR RECORDS PERTAINING TO PATIENTS WHO ARE OR HAVE BEEN ENROLLED IN A CHEMICAL DEPENDENCY/SUBSTANCEABUSE PROGRAM, SOME INFORMATION MAY BE OMITTED. This clinical summary was aggregated from multiple sources. Caution should be exercised in using it in the provision of clinical care. This summary normalizes information from multiple sources, and as a consequence, information in this document may materially change the coding, format and clinical context of patient data. In addition, data may be omitted in some cases. CLINICAL DECISIONS SHOULD BE BASED ON THE PRIMARY CLINICAL RECORDS. [facility] [employer] [facility]. provides no warranty or guarantee of the accuracy or completeness of information in this document.
[2023-03-18 10:00] LABS: Erythrocyte Sedimentation Rate 7 mm/hr (0-20); Hematocrit 45.6 % (40-54); Hemoglobin 15.3 g/dL (13.0-16.5); Mean Corp Hgb Conc 33.6 g/dL (32-36); Mean Corpuscular Hgb 32.3 pg (27.0-32.0); Mean Corpuscular Volume 96.4 fL (80-94); Mean Platelet Vol. 9.7 fl (6.2-12.0); Platelet Count 150 K/mm3 (150-450); Red Blood Count 4.73 M/mm3 (4.6-6.2); White Blood Count 5.8 K/mm3 (4.4-11.0)
[2023-03-18 10:23] LABS: ALB/GLOB Ratio 0.9 RATIO (0.9-2.4); AST(SGOT) 15 U/L (15-37); Alanine Aminotransfer ALT/SGPT 29 U/L (16-61); Albumin, Serum 3.3 g/dL (3.2-5.0); Alkaline Phosphatase 91 U/L (45-117); Anion Gap 6 (5-15); BUN 17 mg/dL (7-18); BUN/Creat Ratio 15.3 RATIO (10-20); CRP < 2.90 mg/L (0.0-3.0); Calcium,Total 9.1 mg/dL (8.5-10.1); Chloride 106 mmol/L (98-107); Cholesterol 202 mg/dL (200); Creatinine, Serum 1.11 mg/dL (0.70-1.30); EST Glomerular Filtration Rate 69 mL/min (>60); Est Glom Filt Rate - Afr Amer 84 mL/min (>60); Estradiol 40.9 pg/mL; Globulin 3.7 g/dL (2.2-4.2); Glucose 105 mg/dL (74-106); High Density Lipoprotein 64 mg/dL; Potassium 4.4 mmol/L (3.5-5.1); Sodium Level 140 mmol/L (136-145); Triglycerides 92 mg/dL; Very Low Density Lipoprotein 18 mg/dL (5-40)
[2023-03-18 10:25] LABS: Vitamin B12 584 pg/mL (211-911); Vitamin D,25 Hydroxy 53.7 ng/mL
[2023-03-27 16:09] LABS: PSA, Free 0.32 ng/mL; PSA, Free % 17.6 % (.); Testosterone, % Free 2.36 % (1.50-4.20); Testosterone, Free 9.63 ng/dL (5.00-21.00); Testosterone, Total 408 ng/dL (264-916)
== END | disposition home or self-care (01) ==
PROVIDERS: PCP Legal Medicine; Referring Provider Legal Medicine; Visit Provider Legal Medicine
DX: N40.0 Benign prostatic hyperplasia without lower urinary tract symptoms (principal); E55.9 Vitamin D deficiency, unspecified; E78.2 Mixed hyperlipidemia
CPT/HCPCS: 36415; 80053; 80061; 82306; 82607; 82670; 84153; 84154; 84402; 84403; 85027; 85652; 86140

== ENCOUNTER → 2023-08-25 | Outpatient (CLI) | payer OTHER, SELFPAY ==
[2023-08-25 08:57] LABS: Erythrocyte Sedimentation Rate 4 mm/hr (0-20); Hematocrit 44.2 % (40-54); Mean Corp Hgb Conc 33.9 g/dL (32-36); Mean Corpuscular Hgb 32.5 pg (27.0-32.0); Mean Corpuscular Volume 95.7 fL (80-94); Mean Platelet Vol. 9.6 fl (6.2-12.0); Platelet Count 144 K/mm3 (150-450); RBC Distribution Width CV 12.6 % (11.6-14.6); RBC Distribution Width SD 43.8 fl (35.1-43.9); Red Blood Count 4.62 M/mm3 (4.6-6.2); White Blood Count 4.2 K/mm3 (4.4-11.0)
[2023-08-25 09:20] LABS: Vitamin B12 553 pg/mL (211-911); Vitamin D,25 Hydroxy 39.8 ng/mL
[2023-08-25 09:41] LABS: AST(SGOT) 14 U/L (15-37); Alanine Aminotransfer ALT/SGPT 22 U/L (16-61); Albumin, Serum 3.4 g/dL (3.2-5.0); Alkaline Phosphatase 84 U/L (45-117); Anion Gap 5 (5-15); BUN 22 mg/dL (7-18); BUN/Creat Ratio 20.2 RATIO (10-20); CRP < 2.90 mg/L (0.0-3.0); Calcium,Total 8.9 mg/dL (8.5-10.1); Chloride 107 mmol/L (98-107); Cholesterol 205 mg/dL (200); Creatinine, Serum 1.09 mg/dL (0.70-1.30); EST Glomerular Filtration Rate 71 mL/min (>60); Est Glom Filt Rate - Afr Amer 85 mL/min (>60); Estradiol 56.3 pg/mL; Globulin 3.5 g/dL (2.2-4.2); Glucose 96 mg/dL (74-106); High Density Lipoprotein 62 mg/dL; Potassium 4.2 mmol/L (3.5-5.1); Protein, Total 6.9 g/dL (6.4-8.2); Sodium Level 138 mmol/L (136-145); Triglycerides 83 mg/dL; Very Low Density Lipoprotein 17 mg/dL (5-40)
[2023-08-31 12:09] LABS: PSA, Free 0.37 ng/mL; PSA, Free % 19.6 % (.); Testosterone, % Free 3.75 % (1.50-4.20); Testosterone, Free 15.38 ng/dL (5.00-21.00); Testosterone, Total 410 ng/dL (264-916)
== END | disposition home or self-care (01) ==
PROVIDERS: PCP Legal Medicine; Referring Provider Legal Medicine; Visit Provider Legal Medicine
DX: N40.0 Benign prostatic hyperplasia without lower urinary tract symptoms (principal); E78.2 Mixed hyperlipidemia; E55.9 Vitamin D deficiency, unspecified
CPT/HCPCS: 36415; 80053; 80061; 82306; 82607; 82670; 84153; 84154; 84402; 84403; 85027; 85652; 86140

== ENCOUNTER → 2024-02-21 | Outpatient (CLI) | payer OTHER, SELFPAY ==
[2024-02-21 12:13] LABS: Hematocrit 41.9 % (40-54); Hemoglobin 14.4 g/dL (13.0-16.5); Mean Corp Hgb Conc 34.4 g/dL (32-36); Mean Corpuscular Hgb 32.7 pg (27.0-32.0); Mean Platelet Vol. 9.5 fl (6.2-12.0); Platelet Count 153 K/mm3 (150-450); RBC Distribution Width CV 12.7 % (11.6-14.6); RBC Distribution Width SD 43.6 fl (35.1-43.9); Red Blood Count 4.41 M/mm3 (4.6-6.2); White Blood Count 4.3 K/mm3 (4.4-11.0)
[2024-02-21 12:58] LABS: ALB/GLOB Ratio 1.1 RATIO (0.9-2.4); AST(SGOT) 15 U/L (15-37); Alanine Aminotransfer ALT/SGPT 26 U/L (16-61); Albumin, Serum 3.6 g/dL (3.2-5.0); Alkaline Phosphatase 78 U/L (45-117); Anion Gap 4 (5-15); BUN 16 mg/dL (7-18); BUN/Creat Ratio 14.7 RATIO (10-20); Chloride 108 mmol/L (98-107); Cholesterol 205 mg/dL (200); Creatinine, Serum 1.09 mg/dL (0.70-1.30); EST Glomerular Filtration Rate 70 mL/min (>60); Est Glom Filt Rate - Afr Amer 85 mL/min (>60); Estradiol 41.2 pg/mL; Globulin 3.3 g/dL (2.2-4.2); Glucose 104 mg/dL (74-106); High Density Lipoprotein 77 mg/dL; PSA,Total- Diagnostic 3.31 ng/mL (0.0-4.0); Potassium 4.4 mmol/L (3.5-5.1); Protein, Total 6.9 g/dL (6.4-8.2); Sodium Level 141 mmol/L (136-145); Triglycerides 104 mg/dL; Very Low Density Lipoprotein 21 mg/dL (5-40)
[2024-02-28 09:22] LABS: Testosterone, % Free 2.97 % (1.50-4.20); Testosterone, Free 14.52 ng/dL (5.00-21.00); Testosterone, Total 489 ng/dL (264-916)
== END | disposition home or self-care (01) ==
PROVIDERS: PCP Legal Medicine; Referring Provider Legal Medicine; Visit Provider Legal Medicine
DX: E78.2 Mixed hyperlipidemia (principal); E34.9 Endocrine disorder, unspecified
CPT/HCPCS: 36415; 80053; 80061; 82670; 84153; 84402; 84403; 85027

== ENCOUNTER → 2024-04-21 | Outpatient (CLI) | payer OTHER, SELFPAY ==
[2024-04-21 12:30] LABS: Estradiol 43.4 pg/mL
[2024-04-24 13:07] LABS: PSA, Free 0.44 ng/mL; PSA, Free % 17.9 % (.)
== END | disposition home or self-care (01) ==
PROVIDERS: PCP Legal Medicine; Referring Provider Legal Medicine; Visit Provider Legal Medicine
DX: R97.20 Elevated prostate specific antigen [PSA] (principal); E34.9 Endocrine disorder, unspecified
CPT/HCPCS: 36415; 82670; 84153; 84154

== ENCOUNTER 2024-07-01 13:22 | Emergency (ER) | payer OTHER, SELFPAY ==
[2024-07-01 13:23] VITALS: BP 155/88; PULSE 81; RESP 19; TEMP 36.8; O2SAT 98; BMI 29.7
--- NOTE | 2024-07-01 13:45 | EDS_ITS ---
HPI History of Present Illness Chief Complaint: Lower Extremity Injury Informant: patient Narrative Narrative: Patient presents concerns for tear of his left hamstring. Racing his granddaughter a week ago he felt pain injury. He saw his chiropractor 2 days after noted some bruising was told was with tear. Since then increasing bruising however is able to ambulate he has been hiking. Yesterday took an aspirin. No similar injuries in the past. Denies any other injuries. No chronic anticoagulation medications. Denies any gastric ulcer history of kidney injury history. [facility] Home Medications ?Medication ?Instructions ?Recorded ?Last Taken ?Type finasteride 5 mg tablet 5 mg PO DAILY 10/17/22 Unkno wn History methocarbamol 500 mg tablet 500 mg PO 4X/DAY PRN PRN M uscle 10/17/22 Unknown Rx pain/spasm #40 tabs amoxicillin 875 mg tablet 875 mg PO BID 07/01/24 Unkno wn History bimatoprost 0.03 % eye drops 1 drp ophthalmic (eye) QH S 07/01/24 Unknown History dorzolamide 22.3 mg-timolol 6.8 1 drp ophthalmic (eye) BID 07/01/24 Unknown History mg/mL eye drops lamotrigine 100 mg tablet 100 mg PO BID 07/01/24 Unkno wn History tamsulosin 0.4 mg capsule 0.4 mg PO DAILY 07/01/24 Unk nown History Allergy/AdvReac Type Severity Reaction Status Date / Time No Known Allergies Allergy Verified 10/17/22 05:33 Social History Smoking Status: Never smoker ROS ROS ED Constitutional Constitutional ED: Denies chills, fever(s) or sweats ENT ENT ED: Denies sore throat Cardiovascular Cardiovascular: Denies chest pain, leg edema, palpitations or racing heartbeat Respiratory/Chest Respiratory/Chest: Denies cough, dyspnea or dyspnea on exertion Gastrointestinal Gastrointestinal: Denies abdominal pain, diarrhea, nausea or vomiting Musculoskeletal Musculoskeletal: Reports extremity pain; Denies back pain or neck pain Integumentary Denies rash or wounds Neurologic Neurologic: Denies headache(s), paresthesias or weakness EXAM Physical Exam Const Vital Signs: 07/01/24 13:23 Temperature 98.2 F Temperature Source Temporal Pulse Rate 81 Respiratory Rate 19 H Blood Pressure 155/88 H Blood Pressure Mean 110 Pulse Ox 98 Oxygen Delivery Method Room Air Positive well nourished and well developed General Appearance ED: well developed and NAD HEENT Reports moist mucous membranes normocephalic and atraumatic Eyes General Eye ED: Yes normal appearance of both eyes Neck full ROM Chest Wall Chest: Negative for tenderness Resp normal respiratory effort and normal air movement Effort and Inspection: symmetric chest movement; Negative for respiratory distress Cardio regular rate, regular rhythm and no murmurs Peripheral Pulses: pulses 2+ throughout GI normal to inspection, nondistended, normoactive bowel sounds and non-tender Palpation: Negative for guarding or rebound tenderness present Extremity Extremity Narrative: Left lower extremity: Ecchymosis posterior thigh hamstring region lower and medial. No massive defects palpated. Able to flex at the knee. Able to ambulate. General Extremety ED: Yes tenderness; Negative for edema General Extremity: Negative for edema Neuro oriented x3 and no sensory deficits noted Sensorium / Orientation: awake and alert Skin no rashes or lesions noted and no wounds MDM MDM MDM Narrative Medical decision making narrative: Interventions / MDM: Differential diagnosis: Hamstring strain, partial tear, Diagnosis considered but do not suspect: No massive defects for concerns for rupture. My EKG interpretation: N/A Imaging independently reviewed and interpreted by myself: N/A External documents reviewed: N/A Test considered but not ordered:N/A ED course: Patient hamstring strain with ecchymosis. Likely microtears there is no massive defects. He is able to ambulate and hike for his history at home. He is walking in the room. Discussed that this should heal with time. Not likely needing surgical intervention. Provided Ernesto wrap for additional support discussed avoiding aspirin. He can use Tylenol or Motrin. He is can follow-up with orthopedics. All questions were answered. Re-evaluation: stable Disposition discussed with patient/family/significant other: Patient Case discussed with consulting clinician: N/A This note was generated with [employer] dictation software. It may contain incorrect words, spelling, and punctuation that were not noted in checking the note before signing. Discharge Plan Triage Chief Complaint: Lower Extremity Injury ED Provider: Elder Marie Dx/Rx/DC Orders Clinical Impression: Partial tear of left hamstring, Left hamstring injury Instructions: ED Muscle Strain, Extremity Prescriptions: No Action finasteride 5 mg tablet 5 mg PO DAILY Patient Comments: TAKE 1 TABLET BY MOUTH ONCE DAILY methocarbamol 500 mg tablet 500 mg PO 4X/DAY PRN PRN (Reason: Muscle pain/spasm) Qty: 40 0RF bimatoprost 0.03 % drops 1 drp ophthalmic (eye) QHS amoxicillin 875 mg tablet 875 mg PO BID tamsulosin 0.4 mg capsule 0.4 mg PO DAILY dorzolamide-timolol 22.3-6.8 mg/mL drops 1 drp ophthalmic (eye) BID lamotrigine 100 mg tablet 100 mg PO BID Primary Care Provider: Faisal Barboza Referrals: Faisal Barboza MD [Primary Care Provider] - Lance Hickey MD [Med Staff - Active Staff] - 1-2 Weeks Activity Restrictions/Additional Instructions: You have a hamstring injury likely small tears, no massive defect for concern for large tear. You are able to flex and ambulate. Ernesto wrap for comfort. Use Tylenol or ibuprofen as needed every 6 hours. Avoid aspirin. May follow-up with Dr. Hickey for reevaluation. Print Language: Swazi Disposition Disposition: Home, Self Care Discharge Date/Time: 07/01/24 14:05
== END 2024-07-01 14:05 | disposition home or self-care (01) ==
LOC: ED 13:57
PROVIDERS: Emergency Provider Emergency Medicine; PCP Legal Medicine; Visit Provider Emergency Medicine
DX: S76.312A Strain of muscle, fascia and tendon of the posterior muscle group at thigh level, left thigh, initial encounter (principal)
CPT/HCPCS: 99282

== ENCOUNTER → 2024-11-06 | Outpatient (CLI) | payer OTHER, SELFPAY ==
[2024-11-06 11:17] LABS: Hematocrit 43.2 % (40-54); Hemoglobin 15.0 g/dL (13.0-16.5); Mean Corp Hgb Conc 34.7 g/dL (32-36); Mean Corpuscular Volume 93.9 fL (80-94); Mean Platelet Vol. 9.4 fl (6.2-12.0); Platelet Count 146 K/mm3 (150-450); RBC Distribution Width CV 12.8 % (11.6-14.6); RBC Distribution Width SD 43.8 fl (35.1-43.9); Red Blood Count 4.60 M/mm3 (4.6-6.2); White Blood Count 5.0 K/mm3 (4.4-11.0)
[2024-11-06 12:14] LABS: AST(SGOT) 17 U/L (<=37); Alanine Aminotransfer ALT/SGPT 16 U/L (<=46); Albumin, Serum 4.3 g/dL (3.4-4.8); Alkaline Phosphatase 77 U/L (40-129); Anion Gap 10 (5-15); BUN 18 mg/dL (4-19); BUN/Creat Ratio 16.9 RATIO (10-20); Calcium,Total 8.9 mg/dL (7.6-11.0); Carbon Dioxide 24.0 mmol/L (21.0-32.0); Chloride 105 mmol/L (98-108); Cholesterol 195 mg/dL (<=200); Globulin 1.8 g/dL (2.2-4.2); Glucose 95 mg/dL (70-99); Low Density Lipoprotein Calc. 109 mg/dL; Potassium 4.7 mmol/L (3.3-5.1); Triglycerides 96 mg/dL; Very Low Density Lipoprotein 19 mg/dL (5-40); Vitamin B12 690 pg/mL (180-914); Vitamin D,25 Hydroxy 39.4 ng/mL (30-100); cholesterol:hdl ratio screen 2.90
[2024-11-06 12:25] LABS: CRP < 3.00 mg/L (0.0-3.0)
[2024-11-09 12:09] LABS: PSA, Free 0.36 ng/mL; PSA, Free % 14.5 % (.); PSA, Total Ultrasensitive 2.480 ng/mL (0.000-4.000); Testosterone, % Free 2.10 % (1.50-4.20); Testosterone, Free 10.46 ng/dL (5.00-21.00)
== END | disposition home or self-care (01) ==
LOC: LAB 10:19
PROVIDERS: PCP Legal Medicine; Referring Provider Legal Medicine; Visit Provider Legal Medicine
DX: E29.1 Testicular hypofunction (principal); N40.0 Benign prostatic hyperplasia without lower urinary tract symptoms; E78.2 Mixed hyperlipidemia; E55.9 Vitamin D deficiency, unspecified
CPT/HCPCS: 36415; 80053; 80061; 82306; 82607; 82670; 84153; 84154; 84402; 84403; 85027; 85652; 86140